=== PATIENT | male | born 1955 | race African-American/Black ===

== ENCOUNTER 2020-01-22 07:33 | Emergency (ER) | payer OTHER ==
[~2020-01-22] VITALS: Ht 172.7 cm; Wt 97.5 kg
[2020-01-22] MEDS ORDERED: PROTONIX 20 MG20 MG PO (07:43)
[2020-01-22] MEDS ORDERED: METFORMIN HCL500 M3 PO (07:43)
[2020-01-22] MEDS ORDERED: DOXYCYCLINE 10100 MG PO (10:02)
[2020-01-22 10:14] VITALS: BP 147/86
== END 2020-01-22 10:14 | disposition home or self-care (01) ==
LOC: ER 07:33
DX: J06.9 Acute upper respiratory infection, unspecified (principal); Z20.828 Contact with and (suspected) exposure to other viral communicable diseases; Y84.4 Aspiration of fluid as the cause of abnormal reaction of the patient, or of later complication, without mention of misadventure at the time of the procedure; E11.9 Type 2 diabetes mellitus without complications; K21.9 Gastro-esophageal reflux disease without esophagitis; F17.210 Nicotine dependence, cigarettes, uncomplicated